=== PATIENT | male | born 1965 | race Caucasian/White ===

== ENCOUNTER 2017-09-18 12:01 | Inpatient (IN) | payer BC ==
[~2017-09-18] VITALS: Ht 175.3 cm; Wt 81.8 kg
--- NOTE | 2017-09-18 12:40 | NUR ---
RECEIVED TO ROOM 2224 FROM MD OFFICE. CALL LIGHT IN REACH.
--- NOTE | 2017-09-18 13:35 | NUR ---
CALLED LAB TO DO BLOOD CULTURES SO THAT I CAN START HIS FIRST ANTIBIOTIC. SPUTUM AND CLEAN CATCH URINE SAMPLE OBTAINED.
[2017-09-18] MEDS ORDERED: LOTENSIN20 MG (13:45)
[2017-09-18] MEDS ORDERED: PROPAFENONE HC150 MG PO (13:45)
[2017-09-18] MEDS ORDERED: MOBIC7.5 MG PO (13:45)
[2017-09-18] MEDS ORDERED: KLONOPIN1 MG PO (13:46)
[2017-09-18] MEDS ORDERED: VIBRAMYCIN 100100 MG PO (13:46)
[2017-09-18] MEDS ORDERED: PROZAC20 MG PO (13:47)
[2017-09-18 14:22] LABS: BASOPHILS 0.2 % (0-2); EOSINOPHILS 3.2 % (0-7); HEMATOCRIT 31.8 % (42.0-54.0); LYMPHOCYTES 10.8 % (15-50); MCH 33.4 pg (26.0-34.0); MCHC 34.6 g/dL (31.0-37.0); MCV 96.7 fL (80.0-100.0); MEAN PLATELET VOLUME 9.5 fL (7.4-10.4); MONOCYTES 18.3 % (2-11); NEUTROPHILS 64.5 % (40-80); PLATELET COUNT 237 10x3/uL (130-400); RBC 3.29 10x6/uL (4.20-6.10); RDW 11.5 % (11.5-14.5); WBC 10.5 10x3/uL (4.8-10.8)
[2017-09-18 14:32] LABS: CALC OSMOLALITY 266 mosm/kg (275-300); CALCIUM 9.2 mg/dL (8.5-10.1); CARBON DIOXIDE 26.7 mmol/L (21.0-32.0); CHLORIDE - SERUM 97 mmol/L (98-107); GLUCOSE 115 mg/dL (74-106); POTASSIUM - SERUM 3.4 mmol/L (3.5-5.1); SODIUM 133 mmol/L (136-145); UREA NITROGEN 12 mg/dL (7-18); eGFR NON AFRICAN AMERICAN 83 mL/min (90-120)
[2017-09-18 14:45] LABS: APPEARANCE CLEAR (CLEAR); BACTERIA FEW /hpf (NONE SEEN); BILIRUBIN NEGATIVE (NEGATIVE); COLOR DK YELLOW (YELLOW); EPITHELIAL CELLS 0-5 /hpf (0-5); GLUCOSE NEGATIVE (NEGATIVE); KETONE NEGATIVE (NEGATIVE); MUCUS >1+ /lpf (NONE SEEN); NITRITE NEGATIVE (NEGATIVE); PROTEIN 1+ mg/dL (NEGATIVE); RED CELLS - URINE 0-5 /hpf (0-5); UROBILINOGEN NORMAL (NORMAL)
--- NOTE | 2017-09-18 15:30 | NUR ---
NO NEEDS VOICED AT THIS TIME. CALL LIGHT IN REACH.
[2017-09-18 15:37] VITALS: BP 115/70
--- NOTE | 2017-09-18 17:12 | NUR ---
SOFY WILSON. CALL LIGHT IN REACH.
--- NOTE | 2017-09-18 18:13 | NUR ---
NO CHANGES IN INITIAL ASSESSMENT. CALL LIGHT IN REACH. WILL CONTINUE WITH PLAN OF CARE.
[2017-09-18 18:16] VITALS: BP 110/64; Ht 175.3 cm; Wt 81.8 kg
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
[2017-09-18 20:00] VITALS: BP 129/70
--- NOTE | 2017-09-18 22:02 | NUR ---
NO COMPLAINTS FROM PATIENT. HE AMBULATES TO RESTROOM AND BACK TO BED. HAS WORSENING INTERMITTENT COUGH. ON ROOM AIR.
[2017-09-19] VITALS: BP 121/73
[2017-09-19 04:00] VITALS: BP 116/63
--- NOTE | 2017-09-19 04:41 | NUR ---
NO CHAGES SINCE ASSESSMENT
--- NOTE | 2017-09-19 04:46 | NUR ---
PT LYING AWAKE IN BED. C/O SWEATING. CHANGED PAD ON BED AND BROUGHT FRESH TOWELS. NO OTHER NEEDS. CONTINUE EMPLOYEE WELLNESS/FITNESS COORDINATOR'S PLAN OF CARE.
[2017-09-19 07:06] VITALS: BP 119/63
[2017-09-19 10:58] VITALS: BP 99/55
[2017-09-19 15:02] VITALS: BP 117/57
[2017-09-19 20:00] VITALS: BP 120/51
[2017-09-20] VITALS: BP 130/61
--- NOTE | 2017-09-20 01:40 | NUR ---
PT RESTING QUIETLY, EYES CLOSED. RESP EVEN, UNLABORED. NO DISTRESS NOTED. CONTINUE SUSPENSION CORD TIER'S PLAN OF CARE.
[2017-09-20 04:00] VITALS: BP 131/66
[2017-09-20 05:50] LABS: BASOPHILS 0.4 % (0-2); EOSINOPHILS 4.4 % (0-7); HEMATOCRIT 30.8 % (42.0-54.0); HEMOGLOBIN 10.3 g/dL (13.5-17.5); IMMATURE GRANULOCYTES 2.5 % (0-5); LYMPHOCYTES 19.9 % (15-50); MCHC 33.4 g/dL (31.0-37.0); MEAN PLATELET VOLUME 9.4 fL (7.4-10.4); MONOCYTES 13.5 % (2-11); NEUTROPHILS 59.3 % (40-80); RBC 3.12 10x6/uL (4.20-6.10); RDW 11.7 % (11.5-14.5)
[2017-09-20 05:52] LABS: MCV 98.7 fL (80.0-100.0); PLATELET COUNT 349 10x3/uL (130-400); WBC 5.6 10x3/uL (4.8-10.8)
[2017-09-20 06:20] LABS: CALC OSMOLALITY 274 mosm/kg (275-300); CALCIUM 8.6 mg/dL (8.5-10.1); CHLORIDE - SERUM 103 mmol/L (98-107); CREATININE - SERUM 0.8 mg/dL (0.6-1.3); GLUCOSE 105 mg/dL (74-106); POTASSIUM - SERUM 3.3 mmol/L (3.5-5.1); SODIUM 139 mmol/L (136-145); eGFR NON AFRICAN AMERICAN > 90 mL/min (90-120)
[2017-09-20 06:22] LABS: UREA NITROGEN 5 mg/dL (7-18)
--- NOTE | 2017-09-20 07:35 | NUR ---
PT IS SITTING UP IN BED TELEVION ON. NO SIGNS OF DISTRESS, PT LT LOBE CRACKLES, PT SOUNDS VERY RASPY. ADVISED TO USE INCENTIVE SPIROMETER TO HELP COUGH UP PHLEGM. AFTER ADVISING PT THIS HE STARTED COUGHING UNCONTROLLABLY. STATED HAS BEEN DOING SO OFF AND ON. BED IN LOW POSITION, CALL LIGHT IN REACH NO OTHER NEEDS VOICED AT THIS TIME. CONTINUE WITH PLAN OF CARE
[2017-09-20 08:54] VITALS: BP 127/61
--- NOTE | 2017-09-20 09:12 | NUR ---
PT AOX4 RESP EVEN AND NONLABORED PT DENIES NEEDS AT THIS TIME IV TO LEFT FOREARM PATENT AND INTACT PT HERE FOR PNUEMONIA FOR THIS VISIT SRX2 BED IN LOWEST POSITION AT THIS TIME WILL CONTINUE TO MONITOR
[2017-09-20 20:00] VITALS: BP 148/76
--- NOTE | 2017-09-20 20:37 | NUR ---
PATIENT RESTING IN BED AND DENIES NEEDS AT THIS TIME. BED IN LOWEST POSITION AND CALL LIGHT WITHIN REACH. ENCOURAGED THE PATIENT TO CALL IF HE HAS NEEDS. MIRIAM MCCAULEY AT BEDSIDE ADMINISTERING MEDS.
[2017-09-21 04:00] VITALS: BP 124/69
--- NOTE | 2017-09-21 07:30 | NUR ---
ASSESSMENT COMPLETE. IV TO L FA PATENT. D5 1/2 WITH 10 KCL INFUSING AT 100 CC/HR VIA PUMP. PHOTOCOPYING MACHINE OPERATOR SHOWING SR 83 PER TECH. DENIES ANY NEEDS AT THIS TIME.
[2017-09-21 08:29] VITALS: BP 125/68
--- NOTE | 2017-09-21 09:48 | NUR ---
Patient Name: EVETTE QUIROZ Admission Status: Urgent Accout number: [id number] Admission Date: 09-18-2017 : 1965 Admission Diagnosis: Attending: CHANTAL CARLSON Current LOS: 3 Anticipated DC Date: 09-24-2017 Planned Disposition: Home Primary Insurance: [employer] Discharge Planning Comments: CM MET WITH PATIENT REGARDING D/C NEEDS AND PLANS. PATIENT STATED HE LIVES WITH HIS ([facility]) AND SHE WILL DRIVE HIM HOME AT DISCHARGE. PATIENT STATED HE HAS A RAMP TO ENTER HOME AND NO STAIRS INSIDE. PATIENT IS INDEPENDENT WITH HIS CARE AND HAS NO DME AT HOME. PATIENTS PCP IS DR. CARLSON AND PHARMACY IS [facility]. PATIENT DENIES NEED FOR HOME HEALTH AT THIS TIME. CM WILL CONTINUE TO FOLLOW PATIENT WITH D/C NEEDS AND PLANS. PCP DR. CARLSON [facility] () [phone] Radiology Special Procedure Tech: Margi Boyle Is the patient Alert and Oriented? Yes 0 * How many steps to enter\exit or inside your home? RAMP 0 * PCP DR. CARLSON 0 * Pharmacy [facility] 0 * Preadmission Environment Home with Family 0 * ADLs Independent 0 * Equipment None 0 * List name and contact numbers for known caregivers / representatives who currently or will assist patient after discharge: [facility] () [phone] * Community resources currently utilized None 0 * Additional services required to return to the preadmission environment? Yes 0 * Can the patient safely return to the preadmission environment? Yes 0 * Has this patient been hospitalized within the prior 30 days at any hospital? No 0 Grand Total: 0
--- NOTE | 2017-09-21 09:55 | NUR ---
SWELLING AND TENDERNESS NOTED TO IV. IV REMOVED. CATHETER TIP INTACT.
[2017-09-21 12:05] VITALS: BP 137/72
--- NOTE | 2017-09-21 13:45 | NUR ---
NO CHANGES NOTED AT THIS TIME.
[2017-09-21 16:14] VITALS: BP 123/73
[2017-09-21] MEDS ORDERED: ZITHROMAX250 MG PO (17:40)
[2017-09-21] MEDS ORDERED: CEFUROXIME250 MG PO (17:43)
--- NOTE | 2017-09-21 18:15 | NUR ---
TOOLS AND PARTS ATTENDANT REMOVED. DISCHARGE TEACHING GIVEN TO PATIENT AND . VOICED UNDERSTANDING. PRESCRIPTIONS WERE ESCRIBED TO HARPS.
--- NOTE | 2017-09-21 18:20 | NUR ---
DC'D HOME WITH . ESCORTED TO [facility] WITH BELONG[facility].
== END 2017-09-21 18:20 | disposition home or self-care (01) | DRG 195 ==
LOC: D.MS 12:01
PROVIDERS: Family Medicine; ADMIT Family Medicine
DX: J18.9 Pneumonia, unspecified organism (principal); I48.0 Paroxysmal atrial fibrillation; I10 Essential (primary) hypertension